=== PATIENT | male | born 1980 | race Caucasian/White ===

== ENCOUNTER 2022-09-10 17:08 | Emergency (ER) | payer BC ==
[~2022-09-10] VITALS: Ht 170.2 cm; Wt 47.6 kg
[2022-09-10 17:19] VITALS: BP 124/65
[2022-09-10] MEDS ORDERED: IBUPROFEN 400 MG TABLET PO ONE (18:30)
[2022-09-10] MEDS ORDERED: IBUPROFEN 400 MG TABLET ONE (18:32)
== END 2022-09-10 18:52 | disposition home or self-care (01) ==
LOC: ER 17:10
DX: S61.111A Laceration without foreign body of right thumb with damage to nail, initial encounter (principal); W26.8XXA Contact with other sharp object(s), not elsewhere classified, initial encounter; Y93.89 Activity, other specified; Y92.89 Other specified places as the place of occurrence of the external cause; Y99.8 Other external cause status
CPT/HCPCS: 99282; A6403